=== PATIENT | male | born 1955 | race Caucasian/White ===

== ENCOUNTER 2019-01-30 07:46 | Day surgery (SDC) | payer OTHER, SELFPAY ==
--- NOTE | 2019-01-30 | PATH_ITS ---
[facility] Accession Number: [id number] . 01 Material submitted: . PART A: cecum - CECAL POLYP PART B: rectum - POLYP - RECTUM NEAR ANUS . 01 Clinical history: . SCREENING COLONOSCOPY . 02 Diagnosis: A. Cecum, Polyp: Tubular adenoma. . B. Rectum, Near Anus, Polyp: Tubular adenoma. MRV/01/31/2019 . 02 Electronically signed: . Alirio Eldridge MD, PhD, Pathologist NPI- [id number] . 01 Gross description: . Part A: CECAL POLYP: Received in formalin are 4 fragment(s) of tam, soft tissue measuring 0.2 x 0.2 x 0.2 cm to 0.4 x 0.3 x 0.2 cm which is entirely submitted and submitted entirely in 1 cassette(s) Part B: POLYP - RECTUM NEAR ANUS: Received in formalin is 1 fragment(s) of tam, soft tissue measuring 0.1 x 0.1 x 0.1 cm which is entirely submitted and submitted entirely in 1 cassette(s) /[facility] /[facility] . 02 Pathologist provided ICD-10: D12.0, D12.8 . 02 CPT . 159005, [id number] Performed at: 01 [facility] [address] [facility], [place], [place] [id number] MD Josafat Morelos MD Phone: [phone] Performed at: 02 [facility] [address] [place], [place] [id number] MD Steph Mcfarlane MD Phone: [phone]
[2019-01-30] MEDS: SODIUM CHLORIDE 0.9% 1,000 ML 100 ML IV (08:08)
[2019-01-30 08:10] VITALS: BP 111/70; PULSE 52; RESP 20; TEMP 36.8; O2SAT 98; BMI 29.0
--- NOTE | 2019-01-30 09:30 | PM.HP.1 ---
History of Present Illness Date Patient Seen: 01/30/19 Time Patient Seen: 09:30 Chief complaint: [id number] SCREENING COLONOSCOPY Narrative: The patient is gentleman here for a screening colonoscopy. He is 63. This is 1st exam. Patient History Social History household members: spouse Family & Social History Social History: household members spouse Meds Home Medications Medication Instructions Recorded Confirmed Type albuterol sulfate 2 puff PRN PRN 01/30/19 01/30/19 History cetirizine [Zyrtec] 10 mg PO DAILY 01/30/19 01/30/19 History prednisone 20 mg PO DAILY 01/30/19 01/30/19 History Allergies Allergy/AdvReac Type Severity Reaction Status Date / Time pollen extracts Allergy Verified 01/30/19 08:13 Morpholine Analogues AdvReac Intermediate Verified 01/30/19 08:10 Review of Systems Review of Systems All systems reviewed & are unremarkable except as noted in HPI and below Allergic/Immunologic Comments: Has a histamine release problem that causes a rash. Exam Vital Signs (past 8 hours): - 01/30/19 08:10 Temperature 98.2 F Pulse Rate 52 L Respiratory Rate 20 Blood Pressure 111/70 Pulse Oximetry 98 Oxygen Delivery Method Room Air Narrative Exam Narrative: Pleasant cooperative patient no apparent distress. Lungs are clear to auscultation. No rales or rhonchi. Heart regular rate and rhythm no murmur gallop. Abdomen is soft nontender without mass. No obvious hernias. Patient is alert and oriented x3. Assessment & Plan Assessment & Plan narrative: The patient for a screening colonoscopy. I have discussed the procedure with them. Risks of bleeding, perforation which would necessitate major operation, failure to find remove all lesions, the potential tattoo were all discussed. All questions were answered. They wished to proceed.
--- NOTE | 2019-01-30 09:32 | PM.PREOP ---
Pre-operative Note Interval Note History & Physical reviewed/Exam performed by Physician: Yes Changes to H&P: No ASA Class (for procedural sedation): I
--- NOTE | 2019-01-30 09:37 | PM.PREOP ---
Pre-operative Note Interval Note History & Physical reviewed/Exam performed by Physician: Yes Changes to H&P: No ASA Class (for procedural sedation): I
[2019-01-30] MEDS: MIDAZOLAM 5 MG/5 ML VIAL IV (10:00)
[2019-01-30] MEDS: fentaNYL 250 MCG/5 ML INJ IV (10:00)
[2019-01-30 10:19] VITALS: BP 96/60; PULSE 57; RESP 10; TEMP 36.2; O2SAT 95
--- NOTE | 2019-01-30 10:20 | P.OP.ENDO_ITS ---
Operative Date/Time/Diagnoses Date of procedure: 01/30/19 Time of procedure: 10:15 Pre-op diagnosis: Screening exam Post-op diagnosis: same (Cecal and rectal polyps) Procedure & Clinicians Study performed: Colonoscopy with hot snare polypectomy Same procedure as scheduled: Yes Indications: Screening Surgeon: Aristeo Jimenez Procedure Notes SCOAP/Timeout: Performed Procedure in detail: The patient was placed in the left lateral decubitus position and underwent IV sedation directed by the surgeon consisting of fentanyl and Versed. Digital exam was unremarkable. The scope was inserted and advanced through the rectum into the sigmoid, descending, transverse, and ascending colon. Pressure was applied and the patient was repositioned a stiffener inserted in order to make our way into the cecum.. The cecum was reac hed identified by the ileocecal valve and the appendiceal opening. There was a polyp in the cecum which I snared and appeared to be completely removed. The ileocecal valve was then cannulated. The terminal ileum was normal in appearance. The scope was gradually brought out. One additional Polyp, which was seen on entering the rectum, was found and snared on retroflex in the scope in the rectum. The appearance was otherwise remarkable for scarring on internal hemorrhoids. There was no inflammation of the hemorrhoids.. The scope was removed and the patient tolerated the procedure well. Prep was excellent. Scope withdrawal time: 10 minutes Sedation minutes: 33 Findings: internal hemorrhoids and polyp Recommendations: Colonscopy in 5 years (Due to the presence of polyps) Follow up: as needed Disposition: PACU
[2019-01-30 10:24] VITALS: BP 99/64; PULSE 56; RESP 14; O2SAT 97
[2019-01-30 10:29] VITALS: BP 100/70; PULSE 56; RESP 14; TEMP 36.4; O2SAT 99
[2019-01-30 10:31] VITALS: BP 99/61; PULSE 54; RESP 10; TEMP 36.2; O2SAT 99
== END 2019-01-30 10:55 | disposition home or self-care (01) ==
PROVIDERS: PCP Family Medicine; Visit Provider Specialist
PROC: 0DJD8ZZ Inspection of Lower Intestinal Tract, Via Natural or Artificial Opening Endoscopic (ICD-10-PCS; CPT 45378; principal; 2019-01-30 08:45)
DX: Z12.11 Encounter for screening for malignant neoplasm of colon (principal); K64.8 Other hemorrhoids; D12.0 Benign neoplasm of cecum; D12.8 Benign neoplasm of rectum
CPT/HCPCS: 45385; 99152; 99153; J2250; J3010

== ENCOUNTER → 2020-05-19 11:06 | Outpatient (CLI) | payer OTHER, SELFPAY ==
--- NOTE | 2020-05-19 11:18 | DI.CT.S_ITS ---
PROCEDURE: CT SINUS SCREEN WO CON INDICATIONS: Allergic rhinitis, unspecified TECHNIQUE: Noncontrast 3.0 mm axial images acquired from the frontal sinuses to the mid-sella, with coronal and sagittal reformats. For radiation dose reduction, the following was used: automated exposure control, adjustment of mA and/or kV according to patient size. COMPARISON: None. FINDINGS: Image quality: Excellent. Maxillary Sinuses: No bony remodeling or destruction. Two small mucous retention cysts are seen within the left maxillary sinus. A minimal degree of mucosal thickening is seen within the inferior left maxillary sinus. Sinuses are otherwise clear. Ethmoid Air Cells: No bony remodeling or destruction. Sinuses are clear. Sphenoid Sinuses: No bony remodeling or destruction. Sinuses are clear. Frontal Sinuses: No bony remodeling or destruction. Sinuses are clear. Ostiomeatal Complexes: Ostiomeatal complexes are patent. No Landry cells. Miscellaneous: Visualized intra-orbital contents are normal. No shabnam bullosa or paradoxical turbinate curvature. There is mild S-shaped nasal septal deviation. IMPRESSION: Mucous retention cysts and minimal mucosal thickening seen within the left maxillary sinus. The paranasal sinuses otherwise appear clear. Mild S shaped nasal septal deviation. Dictated by: Yair Wolff M.D. on 05/19/2020 at 11:14 Approved by: Yair Wolff M.D. on 05/19/2020 at 11:16
== END ==
PROVIDERS: PCP Family Medicine; Referring Provider Family Medicine; Visit Provider Physician Assistant Medical
DX: J34.1 Cyst and mucocele of nose and nasal sinus (principal); J30.9 Allergic rhinitis, unspecified; J34.2 Deviated nasal septum
CPT/HCPCS: 70486

== ENCOUNTER → 2020-08-26 11:03 | Outpatient (CLI) | payer OTHER, SELFPAY ==
--- NOTE | 2020-08-26 12:46 | DI.CT.S_ITS ---
PROCEDURE: CT ABDOMEN PELVIS W CON INDICATIONS: Gastrointestinal hemorrhage, unspecified TECHNIQUE: After the administration of intravenous contrast, 5 mm thick sections acquired from the diaphragm to the symphysis. 5 mm coronal and sagittal reformats were acquired. For radiation dose reduction, the following was used: automated exposure control, adjustment of mA and/or kV according to patient size. COMPARISON: None. FINDINGS: Image quality: Excellent. ABDOMEN: Lung bases: Lung bases are clear. Heart size is normal. Solid organs: Liver is normal in size and enhancement. Suspect fatty infiltration within the liver. Gallbladder appears normal. Biliary system is non dilated. Pancreas enhances normally. Spleen is normal in size and enhancement. No adrenal nodules. Kidneys demonstrate normal size and enhancement, without hydronephrosis. Peritoneum and bowel: Bowel loops demonstrate normal wall thickness and caliber. No free fluid or air. Nodes and vessels: No retroperitoneal or mesenteric adenopathy by size criteria. Aorta and inferior vena cava are normal in size. Miscellaneous: No ventral hernias. PELVIS: Genitourinary: Bladder wall thickness is normal. Miscellaneous: No inguinal hernias or adenopathy. Bones: No suspicious bony lesions. No vertebral body compression fractures. IMPRESSION: No aneurysm or dissection found. No active inflammatory process is seen. Over the abdomen and pelvis no intestinal obstruction or perforation is suspected. Source of current symptoms is not seen. Dictated by: Jesus Poole M.D. on 08/26/2020 at 13:43 Approved by: Jesus Poole M.D. on 08/26/2020 at 14:07
== END ==
PROVIDERS: PCP Family Medicine; Referring Provider Physician Assistant; Visit Provider Physician Assistant
DX: K92.2 Gastrointestinal hemorrhage, unspecified (principal)
CPT/HCPCS: 74177; Q9967

== ENCOUNTER 2020-09-25 09:03 | Day surgery (SDC) | payer OTHER, SELFPAY ==
[2020-09-25] VITALS (11 sets, daily range): BP systolic 86–111; BP diastolic 51–71; PULSE 48–61; RESP 7–16; TEMP 36.1–36.8; O2SAT 96–100; BMI 27.9
[2020-09-25] MEDS: LACTATED RINGERS 1,000 ML 200 ML IV ×2 (09:40→11:57)
--- NOTE | 2020-09-25 10:59 | PM.PREOP ---
Pre-operative Note COVID-19 COVID-19 status: Negative Result date/Date tested (Pos, Neg/Pending): 09/24/20 Interval Note History & Physical reviewed/Exam performed by Physician: Yes Changes to H&P: No ASA Class (for procedural sedation): II
[2020-09-25] MEDS: fentaNYL 250 MCG/5 ML INJ IV (11:07)
[2020-09-25] MEDS: MIDAZOLAM 5 MG/5 ML VIAL IV (11:07)
--- NOTE | 2020-09-25 11:41 | PM.OP.ENDO ---
Operative Date/Time/Diagnoses Date of procedure: 09/25/20 Time of procedure: 11:41 Pre-op diagnosis: History of rectal bleeding. Post-op diagnosis: same (Small internal hemorrhoids) Procedure & Clinicians Study performed: Colonoscopy Same procedure as scheduled: Yes Indications: Evaluate for causes of rectal bleeding Surgeon: Aristeo Jimenez Procedure Notes SCOAP/Timeout: Performed Procedure in detail: The patient was placed in the left lateral decubitus position and underwent IV sedation directed by the surgeon consisting of fentanyl and Versed. Digital exam was unremarkable. His prostate is normal sized without mass.. The scope was inserted and advanced through the rectum into the sigmoid, descending, transverse, and ascending colon. Pressure was applied a stiffener inserted in order to reach the cecum.. The cecum was reached identified by the ileocecal valve and the appendiceal opening. The scope was gradually brought out. No Polyps were found. The scope ultimately was retroflexed in the rectum. The appearance was remarkable for some small internal hemorrhoids with minor scarring but otherwise normal in appearance.. The scope was removed and the patient tolerated the procedure well Scope withdrawal time: 10 minutes Sedation minutes: 30 Findings: internal hemorrhoids Specimen(s): none sent Complications: none Post-procedure Recommendations: Colonscopy in 5 years (Due to personal history of polyps) Follow up: as needed Disposition: PACU
== END 2020-09-25 12:56 | disposition home or self-care (01) ==
PROVIDERS: PCP Family Medicine; Referring Provider Specialist; Visit Provider Specialist
PROC: 0DJD8ZZ Inspection of Lower Intestinal Tract, Via Natural or Artificial Opening Endoscopic (ICD-10-PCS; CPT 45378; principal; 2020-09-25 10:00)
DX: K62.5 Hemorrhage of anus and rectum (principal); K64.8 Other hemorrhoids
CPT/HCPCS: 45378; 99152; 99153; J2250; J3010

== ENCOUNTER → 2021-02-18 08:13 | Outpatient (CLI) | payer OTHER, SELFPAY ==
[2021-02-18 20:18] LABS: Add Manual Diff / Slide Review NO; Basophils Absolute Auto 0 /uL (0-100); Basophils Percent Auto 0.5 % (0-2); Eosinophils Absolute Auto 100 /uL (0-450); Eosinophils Percent Auto 2.8 % (2-4); Hematocrit 42.6 % (41-53); Hemoglobin 13.9 g/dL (13.5-17.5); Lymphocytes Absolute Auto 1500 /uL (1100-4500); Lymphocytes Percent Auto 30.6 % (25-40); Mean Corpuscular HGB Conc 32.6 % (30-36); Mean Corpuscular Hemoglobin 30.9 PG (26-34); Mean Corpuscular Volume 94.8 fL (80-100); Monocytes Absolute Auto 500 /uL (0-900); Monocytes Percent Auto 10.1 % (3-14); Neutrophils Absolute Auto 2800 /uL (1500-7000); Platelet Count 219 X10^3/uL (150-400); Red Cell Distribution Width 13.8 % (11.6-14.8)
[2021-02-18 20:26] LABS: Alanine Aminotransferase 14 IU/L (<50); Albumin 3.9 g/dL (3.5-5.0); Albumin Globulin Ratio 1.5 (1.0-2.8); Alkaline Phosphatase 49 U/L (38-126); Aspartate Aminotransferase 19 IU/L (17-59); BUN Creatinine Ratio 15.5 (6-22); Bilirubin Total 0.6 mg/dL (0.2-1.3); Blood Urea Nitrogen 18 mg/dL (9-20); Calcium 9.3 mg/dL (8.4-10.2); Carbon Dioxide 26 mmol/L (22-32); Chloride 107 mmol/L (98-107); Cholesterol 231 mg/dL (140-199); Estimated Glomerular Filt Rate > 60.0 mL/min (>60); Globulin 2.6 g/dL (1.7-4.1); Glucose 92 mg/dL (80-110); HDL Cholesterol 48 mg/dL (40-60); HEMOLYSIS < 15 (0-50); LDL Cholesterol Calculated 162 mg/dL (<100); Potassium 4.5 mmol/L (3.4-5.1); Sodium 139 mmol/L (137-145); Total Protein 6.5 g/dL (6.3-8.2); Triglycerides 104 mg/dL (35-150)
== END ==
PROVIDERS: PCP Family Medicine; Visit Provider Family Medicine
DX: E78.5 Hyperlipidemia, unspecified (principal)
CPT/HCPCS: 80053; 80061; 85025

== ENCOUNTER → 2021-06-30 08:03 | Outpatient (CLI) | payer MEDICARE, SELFPAY ==
[2021-07-01 17:14] LABS: Cholesterol 224 mg/dL (140-199); HDL Cholesterol 41 mg/dL (40-60); LDL Cholesterol Calculated 163 mg/dL (<100); Triglycerides 101 mg/dL (35-150)
== END ==
PROVIDERS: PCP Family Medicine; Referring Provider Family Medicine; Visit Provider Family Medicine
DX: E78.00 Pure hypercholesterolemia, unspecified (principal)
CPT/HCPCS: 80061

== ENCOUNTER → 2022-09-16 10:38 | Outpatient (CLI) | payer MEDICARE, SELFPAY ==
[2022-09-17 08:12] LABS: Add Manual Diff / Slide Review NO; Basophils Absolute Auto 0 /uL (0-100); Basophils Percent Auto 0.5 % (0-2); Eosinophils Absolute Auto 100 /uL (0-450); Hematocrit 43.8 % (41-53); Lymphocytes Absolute Auto 1700 /uL (1100-4500); Lymphocytes Percent Auto 33.6 % (25-40); Mean Corpuscular HGB Conc 34.3 % (30-36); Mean Corpuscular Hemoglobin 31.7 PG (26-34); Mean Corpuscular Volume 92.3 fL (80-100); Monocytes Absolute Auto 600 /uL (0-900); Monocytes Percent Auto 11.3 % (3-14); Neutrophils Absolute Auto 2600 /uL (1500-7000); Neutrophils Percent Auto 51.6 % (50-75); Platelet Count 231 X10^3/uL (150-400); Red Blood Cell Count 4.74 X10^6/uL (4.5-5.9); Red Cell Distribution Width 13.7 % (11.6-14.8)
[2022-09-17 08:21] LABS: Alanine Aminotransferase 21 IU/L (<50); Albumin 4.4 g/dL (3.5-5.0); Albumin Globulin Ratio 1.5 (1.0-2.8); Alkaline Phosphatase 51 U/L (38-126); Aspartate Aminotransferase 23 IU/L (17-59); BUN Creatinine Ratio 20.6 (6-22); Bilirubin Total 0.7 mg/dL (0.2-1.3); Blood Urea Nitrogen 22 mg/dL (9-20); Calcium 9.7 mg/dL (8.4-10.2); Carbon Dioxide 27 mmol/L (22-32); Chloride 104 mmol/L (98-107); Cholesterol 246 mg/dL (140-199); Estimated Glomerular Filt Rate > 60 mL/min (>60); Glucose 95 mg/dL (80-110); HDL Cholesterol 41 mg/dL (40-60); HEMOLYSIS 16 (0-50); LDL Cholesterol Calculated 181 mg/dL (<100); Potassium 4.3 mmol/L (3.4-5.1); Sodium 140 mmol/L (137-145); Total Protein 7.4 g/dL (6.3-8.2); Triglycerides 120 mg/dL (35-150)
== END ==
PROVIDERS: PCP Family Medicine; Visit Provider Family Medicine
DX: Z01.810 Encounter for preprocedural cardiovascular examination (principal); M19.172 Post-traumatic osteoarthritis, left ankle and foot; Z87.81 Personal history of (healed) traumatic fracture; Z98.890 Other specified postprocedural states; E78.00 Pure hypercholesterolemia, unspecified; Z01.818 Encounter for other preprocedural examination
CPT/HCPCS: 80053; 80061; 85025; 87797

== ENCOUNTER → 2022-12-23 12:48 | Outpatient (CLI) | payer MEDICARE, SELFPAY | PROVIDERS: PCP Family Medicine; Referring Provider Family Medicine; Visit Provider Family Medicine | DX: R42 Dizziness and giddiness (principal); R00.0 Tachycardia, unspecified | CPT/HCPCS: 93246 ==

== ENCOUNTER → 2023-10-06 12:59 | Outpatient (CLI) | payer OTHER, SELFPAY ==
[2023-10-06 19:28] LABS: Add Manual Diff / Slide Review NO; Basophils Absolute Auto 0 /uL (0-100); Basophils Percent Auto 0.4 % (0-2); Eosinophils Absolute Auto 100 /uL (0-450); Hematocrit 43.5 % (41-53); Hemoglobin 14.9 g/dL (13.5-17.5); Lymphocytes Absolute Auto 1500 /uL (1100-4500); Lymphocytes Percent Auto 28.1 % (25-40); Mean Corpuscular HGB Conc 34.2 % (30-36); Mean Corpuscular Hemoglobin 31.7 PG (26-34); Mean Corpuscular Volume 92.6 fL (80-100); Monocytes Absolute Auto 500 /uL (0-900); Monocytes Percent Auto 9.1 % (3-14); Neutrophils Absolute Auto 3300 /uL (1500-7000); Neutrophils Percent Auto 60.4 % (50-75); Platelet Count 244 X10^3/uL (150-400); Red Cell Distribution Width 13.4 % (11.6-14.8); White Blood Cell Count 5.5 X10^3/uL (4.5-11.0)
[2023-10-06 19:29] LABS: Alanine Aminotransferase 24 IU/L (<50); Albumin 4.3 g/dL (3.5-5.0); Albumin Globulin Ratio 1.4 (1.0-2.8); Alkaline Phosphatase 51 U/L (38-126); Aspartate Aminotransferase 25 IU/L (17-59); BUN Creatinine Ratio 16.8 (6-22); Bilirubin Total 0.6 mg/dL (0.2-1.3); Blood Urea Nitrogen 19 mg/dL (9-20); Calcium 9.6 mg/dL (8.4-10.2); Carbon Dioxide 27 mmol/L (22-32); Chloride 104 mmol/L (98-107); Cholesterol 261 mg/dL (140-199); Estimated Glomerular Filt Rate > 60 mL/min (>60); Glucose 95 mg/dL (80-110); HDL Cholesterol 41 mg/dL (40-60); HEMOLYSIS < 15 (0-50); LDL Cholesterol Calculated 188 mg/dL (<100); Sodium 139 mmol/L (137-145); Total Protein 7.3 g/dL (6.3-8.2); Triglycerides 161 mg/dL (35-150)
[2023-10-06 19:35] LABS: Hemoglobin A1C% w Est Avg Glu 5.6 % (4.0-6.0)
[2023-10-06 19:56] LABS: Vitamin D 25 Hydroxy (D3) 29.5 ng/mL (30.0-100.0)
[2023-10-06 20:00] LABS: TSH w/ Reflex to FT4 2.49 uIU/mL (0.47-4.68)
[2023-10-06 20:18] LABS: Vitamin B12 309 pg/mL (239-931)
[2023-10-12 17:36] LABS: ANA Screen, IFA Negative (.)
== END ==
PROVIDERS: PCP Family Medicine; Visit Provider Family Medicine
DX: R60.0 Localized edema (principal); R00.0 Tachycardia, unspecified; H53.9 Unspecified visual disturbance; R53.83 Other fatigue; G57.92 Unspecified mononeuropathy of left lower limb; E78.2 Mixed hyperlipidemia; F43.10 Post-traumatic stress disorder, unspecified; R41.89 Other symptoms and signs involving cognitive functions and awareness; I47.10 Supraventricular tachycardia, unspecified; R41.3 Other amnesia; R47.01 Aphasia; Z68.27 Body mass index [BMI] 27.0-27.9, adult; Z86.59 Personal history of other mental and behavioral disorders
CPT/HCPCS: 80053; 80061; 82306; 82607; 83036; 84443; 85025; 86038

== ENCOUNTER → 2023-10-11 17:13 | Outpatient (CLI) | payer OTHER, SELFPAY ==
--- NOTE | 2023-10-11 17:15 | DI.MRI.S_ITS ---
PROCEDURE: MR HEAD/BRAIN WO CON INDICATIONS: cognitive decline, language changes, TECHNIQUE: Non-contrast axial T1 spin echo, axial T2 fast spin echo, sagittal and axial FLAIR, coronal T2 fast spin echo, axial gradient echo, axial diffusion and ADC through the brain. COMPARISON: [facility], CT, CT SINUS SCREEN WO CON, 05/19/2020, 11:10. FINDINGS: Image quality: Excellent. CSF spaces: Ventricles appear symmetric in size and shape. Basal cisterns are patent. No extra-axial fluid collections. Brain: No intracranial bleeds or mass effects. There is cerebral volume loss for age. There are periventricular and deep white matter chronic small vessel ischemic changes. Brainstem appears normal. Diffusion-weighted images show no acute infarct. No chronic ischemic insults. Normal intravascular flow voids are present. Skull and face: Calvarial bone marrow is normal in signal. Orbits are normal. Note is made of bilateral lens replacements. Sinuses: Mild scattered paranasal sinus disease can be seen. There is at least moderate left mastoid air cell fluid seen. IMPRESSION: Noncontrast brain MRI within normal limits for age. No prior territorial infarct can be seen. No findings of acute or subacute infarction can be seen. Note is made of age-appropriate brain parenchymal volume loss and chronic small vessel ischemic changes. Additional findings: Bilateral lens replacements At least moderate left mastoid air cell fluid. Scattered paranasal sinus disease Dictated by: Yair Wolff M.D. on 10/11/2023 at 17:36 Approved by: Yair Wolff M.D. on 10/11/2023 at 17:38
== END ==
PROVIDERS: PCP Family Medicine; Referring Provider Family Medicine; Visit Provider Family Medicine
DX: R41.89 Other symptoms and signs involving cognitive functions and awareness (principal); R41.3 Other amnesia; F43.10 Post-traumatic stress disorder, unspecified; J32.8 Other chronic sinusitis; R53.83 Other fatigue; Z96.1 Presence of intraocular lens
CPT/HCPCS: 70551

== ENCOUNTER → 2024-12-03 10:35 | Outpatient (CLI) | payer MEDICARE, OTHER, SELFPAY ==
[2024-12-03 18:45] LABS: Add Manual Diff / Slide Review NO; Basophils Absolute Auto 0 /uL (0-100); Basophils Percent Auto 0.5 % (0-2); Eosinophils Absolute Auto 200 /uL (0-450); Eosinophils Percent Auto 3.1 % (2-4); Hematocrit 43.1 % (41-53); Hemoglobin 14.5 g/dL (13.5-17.5); Lymphocytes Absolute Auto 1600 /uL (1100-4500); Lymphocytes Percent Auto 28.5 % (25-40); Mean Corpuscular HGB Conc 33.7 % (30-36); Mean Corpuscular Hemoglobin 31.7 PG (26-34); Mean Corpuscular Volume 94.2 fL (80-100); Monocytes Absolute Auto 600 /uL (0-900); Neutrophils Absolute Auto 3200 /uL (1500-7000); Neutrophils Percent Auto 56.9 % (50-75); Platelet Count 228 X10^3/uL (150-400); Red Blood Cell Count 4.58 X10^6/uL (4.5-5.9); Red Cell Distribution Width 13.3 % (11.6-14.8); White Blood Cell Count 5.7 X10^3/uL (4.5-11.0)
[2024-12-03 18:57] LABS: BUN Creatinine Ratio 20.8 (6-22); Blood Urea Nitrogen 21 mg/dL (9-20); Calcium 9.5 mg/dL (8.4-10.2); Carbon Dioxide 27 mmol/L (22-32); Chloride 106 mmol/L (98-107); Cholesterol 169 mg/dL (140-199); Estimated Glomerular Filt Rate > 60 mL/min (>60); Glucose 98 mg/dL (80-110); HDL Cholesterol 44 mg/dL (40-60); HEMOLYSIS 17 (0-50); LDL Cholesterol Calculated 106 mg/dL (<100); Potassium 4.7 mmol/L (3.4-5.1); Sodium 138 mmol/L (137-145); Triglycerides 96 mg/dL (35-150)
== END ==
PROVIDERS: PCP Family Medicine; Referring Provider Family Medicine; Visit Provider Family Medicine
DX: E78.2 Mixed hyperlipidemia; R53.83 Other fatigue; R41.3 Other amnesia; Z87.19 Personal history of other diseases of the digestive system
CPT/HCPCS: 80048; 80061; 85025